=== PATIENT | female | born 1950 | race American Indian/Alaskan Native ===

== ENCOUNTER 2017-01-14 08:58 | Day surgery (SDC) | payer MEDICARE ==
[2017-01-14] MEDS ORDERED: NACL 0.9% 1000 ML 1,000 ML IV SCH (10:00)
--- NOTE | 2017-01-14 10:24 | Anesthesia Consultation ---
Anesthesia Consult and Med Hx Date of service: 01/14/17 - Airway Anesthetic Teeth Evaluation: Edentulous ROM Head & Neck: Adequate Mental/Hyoid Distance: Adequate Mallampati Class: Class II Intubation Access Assessment: Probably Good - Pulmonary Exam CTA: Yes - Cardiac Exam Cardiac Exam: RRR - Pre-Operative Health Status ASA Pre-Surgery Classification: ASA2 Proposed Anesthetic Plan: MAC - Cardiovascular System Hx Hypertension: Yes Hx Heart Murmur: Yes (09/14) - Endocrine Hx Non-Insulin Dependent Diabetes: No - Other Systems Hx Alcohol Use: No Hx Substance Use: No
--- NOTE | 2017-01-14 10:25 | Anesthesia Day of Surgery ---
Anesthesia Day of Surgery - Day of Surgery Patient Examined: Yes Patient H&P Reviewed: Yes Patient is NPO: Yes
[2017-01-14] MEDS ORDERED: DIPRIVAN 10 MG/ML IV ONE ×2 (11:39)
[2017-01-14] MEDS ORDERED: XYLOCAINE 1% 20 mL ONE (11:39)
[2017-01-14] MEDS ORDERED: WATER FOR IRRIG STERILE ONE (12:59)
[2017-01-14] MEDS ORDERED: WATER FOR IRRIG STERILE IR ONE (13:00)
--- NOTE | 2017-01-14 13:09 | Operative Report ---
Operative Report Operative Report: Date of procedure: 01/14/2017 Procedure: Colonoscopy Attending physician: David Toure MD Agency Owner: David Toure MD Indication: Patient is a 66-year-old male referred for colorectal cancer screening. A colonoscopy is done to evaluate patient so that treatment may be directed based on the findings. Consent: Informed consent was obtained after advising the patient and family regarding nature of this procedure, its indications, potential benefits as well as possible complications including but not limited to bleeding perforation and adverse reaction to medication, infection as well as other cardiopulmonary complications. An informed written and verbal consent was then obtained after due opportunity was provided for questions and answers. Monitoring: Patient was monitored continuously with pulse oximetry and electrocardiographic recordings as well as blood pressure recordings. Vital signs remained stable throughout this procedure with no untoward events. Preoperative assessment: Patient was assessed immediately prior to this procedure for capacity to tolerate monitored anesthesia care and moderate sedation as well as general anesthesia. Patient's ASA classification is 2, Mallampati class is 2, Hyomental distance is 3. Instrument: [email or web address] video colonoscope Medications: Propofol, given intravenously in divided doses. For details please refer to anesthesia records. Description of procedure: Patient was placed in the left lateral decubitus position after achieving sedation, a digital rectal examination was performed following which the colonoscope was introduced into the anal verge and advanced to the cecum which was identified by the cecal valve, the appendiceal orifice, as well as by the cecal strap and direct transillumination. The colonoscope was subsequently withdrawn with careful inspection of all mucosal surfaces. Patient tolerated this procedure well and was subsequently taken to the recovery room. The following findings were noted. Findings: Patient had densely adherent stool in the cecum and also in the proximal ascending colon. This could not be easily irrigated. This therefore made the visualization of this area poor. There also was scattered retained stool in the distal ascending colon as well as in the mid transverse colon and descending colon. The distal descending colon as well as a sigmoid colon were normal. On the retroflex view at the anal verge patient had internal hemorrhoids. Impression: Substantial retained stool with poor colonoscopic preparation. Internal hemorrhoids. No gross mucosal abnormalities were seen on this examination. Plan: High-fiber diet. Consider repeat colonoscopy in one year given the poor colonoscopic preparation.
--- NOTE | 2017-01-14 13:10 | Discharge Summary ---
Short Stay Discharge Plan Activity: advance as tolerated Weight Bearing Status: Weight Bear as Tolerated Diet: regular Follow up with: ROSI MCLAIN MD [Primary Care Provider] - 7 Days
[2017-01-14 13:34] VITALS: BP 142/69
--- NOTE | 2017-01-14 15:02 | Post Anesthesia Evaluation ---
- Post Anesthesia Evaluation Patient Participated: Yes Airway Patent: Yes Stable Respiratory Function: Yes Nausea/Vomiting: No Temp > 96.8F: Yes Pain Manageable: Yes Adequeate Hydration: Yes Anesthesia Complications: No Block Receding Appropriately: Not Applicable Patient on Ventilator: No
== END 2017-01-14 08:59 | disposition home or self-care (01) ==
LOC: GIO 08:58
PROVIDERS: ATTEND Internal Medicine Gastroenterology
DX: Z12.11 Encounter for screening for malignant neoplasm of colon (principal); K64.8 Other hemorrhoids; I10 Essential (primary) hypertension; M19.049 Primary osteoarthritis, unspecified hand; M17.9 Osteoarthritis of knee, unspecified; Z86.010 Personal history of colon polyps; Z79.899 Other long term (current) drug therapy; Z88.6 Allergy status to analgesic agent
CPT/HCPCS: 45378; J2704; J7030